=== PATIENT | male | born 1945 | race Caucasian/White ===

== ENCOUNTER 2021-01-08 21:18 | Inpatient (IN) | payer OTHER ==
[~2021-01-08] VITALS: Ht 162.6 cm; Wt 67.4 kg
[2021-01-08] MEDS ORDERED: TRAZODONE HCL150 MG PO (22:17)
[2021-01-08] MEDS ORDERED: GABAPENTIN300 MG PO (22:19)
[2021-01-08] MEDS ORDERED: MOBIC15 MG PO (22:19)
[2021-01-08] MEDS ORDERED: TRAZODONE HCL50 MG PO (22:20)
[2021-01-08] MEDS ORDERED: MULTI VITAMIN1 EACH PO (22:21)
[2021-01-08] MEDS ORDERED: DOCUSATE SODIU1 EACH PO (22:22)
[2021-01-08] MEDS ORDERED: FLOMAX0.4 MG PO (22:23)
[2021-01-08] MEDS ORDERED: METHADONE10 MG/5 ML PO (22:24)
--- NOTE | 2021-01-09 01:44 | NUR ---
REPORT RECEIVED FROM NATALIE SETH FROM ER. REPORTS THAT PT HAS DEMENTIA HAS CAREGIVER. PT HAD BM IN ER, IS INCONTINENT. HAS MIJARES IN PLACE. ON OXY MASK TO KEEP SATS IN THE 90'S. PT BROUGHT TO CCU BY NURSING UTILIZATION REVIEW RN WALTER. PATIENT WAS BEING TRANSFERRED TO BED AND HAD SMALL SOFT FORMED STOOL. PT CLEANED AND PLACE ON CCU BED.
--- NOTE | 2021-01-09 04:04 | NUR ---
INCREASED OXYMASK SETTING TO 7 LITERS TO MAINTAIN SATS IN THE 90'S. PT WILL FALL ASLEEP AND HIS SATS WILL DROP INTO THE HIH 80'S ON 5 LITER OXYMASK.
--- NOTE | 2021-01-09 05:11 | NUR ---
PT ASSESSMENT COMPLETE. WHEN THIS RN WENT INTO ROOM, PATIENT HAD HIS OXYMASK OFF HIS FACE, SATS DROPPED INTO MID 80'S. REINFORCED TO PATIENT THAT HE NEEDS OXYGEN AT THIS TIME AND THAT HE NEEDS TO KEEP O2 IN PLACE TO MAINTAIN HIS SATS. PT VERBALIZED UNDERSTANDING, BUT CONTNUES TO GRAB AT MASK, ALSO HAS BEEN FIGETING WITH SAT PROBE TO FINGER. KEPT OXYMASK AT 7 LITERS.
--- NOTE | 2021-01-09 05:43 | NUR ---
PT APPEARS TO BE FEELING A LITTLE AGITATED, PATIENT CONCERNED THAT HE WILL BE WITHOUT HIS "PILL" PATIENT ASKED IF HE IS REFERRING TO HIS METHADONE, SAYS "YES" AND HE HAS BEEN TAKING "IT FOR A LONG TIME, DON'T LIKE HOW IT FEELS WHEN WITHOUT IT" PT HAS PRN ORDER FOR OXYCODONE 5MG NEEDED FOR PAIN OR WITHDRAWL. SEE EMAR. PT MEDICATED. CONTINUING TO REINFORCE TO PATIENT TO KEEP OXYGEN ON. PT CAN BE HEARD HAVING NUMEROUS COUGHING EPISODES.
--- NOTE | 2021-01-09 07:30 | NUR ---
REPORT RECIEVED. PATIENT IS AWAKE WITH HOB ELEVATED. NO DISTRESS NOTED. IS ON OXYMASK AT 7 L.
--- NOTE | 2021-01-09 10:00 | NUR ---
RESTING. CONTINUES TO RAMBLE ON WITH WORDS, NOT SURE WHAT PATIENT IS TRYING TO SAY. IC CONFUSED.
--- NOTE | 2021-01-09 12:55 | NUR ---
restful in bed at this time. WAITING FOR LUNCH.
--- NOTE | 2021-01-09 13:08 | NUR ---
AGITATED, ATTEMPTIMG TO GET OOB. TRYING TO REASON WITH PATIENT. PATIENT NOW SITTING AT BED SIDE. RN IN ROOM FOR PATIENT SAFETY. NO RESP DISTRESS NOTED. MIJARES CATH PATENT. IVF ON HOLD AT THIS TIME PATIENT PULLING AT IV TUBING.
--- NOTE | 2021-01-09 13:30 | NUR ---
TOOK FEW BITES OF POTATOES. NO COUGH NOTED WHEN SWALLOWING.
--- NOTE | 2021-01-09 13:45 | NUR ---
SITTING AT BEDSIDE. STATES HE IS CONFUSED.
--- NOTE | 2021-01-09 13:50 | NUR ---
REFUSING TO TAKE PO MEDICATIONS. DR. CHEW UPDATEDE VIA PHONE REGARDING PATIENT AGITATION AND CONFUSION. ORDERS RECIEVED.
--- NOTE | 2021-01-09 14:15 | NUR ---
PULLED OFF LEADS, PULLING AT MIJARES CATH. IVF REMAIN HELD DUE TO PATIENTS FRUSTRATION. PATIENT WILL TALK AND ABLE TO UNDERSTAND WHAT HE IS SAYING BUT IS NOT MAKING SENSE MOST OF THE TIME. MORPHINE 2 MG IV GIVEN PER ORDERS.
--- NOTE | 2021-01-09 14:25 | NUR ---
MORE CALM AFTER MORPHINE.
--- NOTE | 2021-01-09 14:30 | NUR ---
TOOK PO MEDICATIONS. HAS PRODUCTIVE COUGHT OF THICK GREEN SPUTUM,
--- NOTE | 2021-01-09 14:49 | NUR ---
CONTINUES TO SIT AT BEDSIDE. NOT ON MONITOR,OXIMETER, OR IVF. GIVING PATIENT TIME TO RELAX. HAS BEEN PULLING AT IV SITES AT TIMES. RN IN ROOM.
--- NOTE | 2021-01-09 15:30 | NUR ---
IV SITES X 2 TO RIGHT HAND REDRESSED, BOTH SITES ARE PATENT.
--- NOTE | 2021-01-09 16:10 | NUR ---
IVF NOW INFUSING, STAFFING MANAGER ON, OXIMETER ON.
[2021-01-09] MEDS ORDERED: DOCUSATE SODIU1 EACH PO (16:37)
[2021-01-09] MEDS ORDERED: DISULFIRAM250 MG PO (16:41)
[2021-01-09] MEDS ORDERED: MUCUS RELIEF400 MG PO (16:47)
[2021-01-09] MEDS ORDERED: IMMUNICARE CAP1 EACH PO (16:48)
--- NOTE | 2021-01-09 16:50 | NUR ---
MED REC COMPLETE
--- NOTE | 2021-01-09 17:32 | EKG ---
[facility] [address] [facility] [place], [place] [address] Signed Normal sinus rhythm Nonspecific T wave abnormality Prolonged QT Abnormal ECG No previous ECGs available Confirmed by APOORVA CHEW DO ([id number]) on 01/09/2021 5:31:58 PM Electronically Signed By: APOORVA CHEW DO 01/09/21 1732 PATIENT NAME: MORGAN LEE Electrocardiogram DATE OF : 49 PHYSICIAN: APOORVA CHEW DO REPORT #: [id number] REPORT IS CONFIDENTIAL AND NOT TO BE RELEASED WITHOUT AUTHORIZATION
--- NOTE | 2021-01-09 18:06 | NUR ---
REFUSED DINNER. DENIES PAIN. HAS BEEM MORE CALM SINCE AROUND 1600 TODAY. CONTINUES WITH HARSH COUGH. NO FUTHER CHANGES.
--- NOTE | 2021-01-09 19:22 | NUR ---
NO FUTHER CHANGES. REPORT TO NEXT SHIFT.
--- NOTE | 2021-01-09 19:36 | NUR ---
RECEIVED REPORT FROM DAY SHIFT NURSES. BELKIS HAD DECENT MORNING BUT IN THE AFTERNOON WAS TRYING TO GET OUT OF BED PULL IV'S AND CORDS. MIJARES WAS REMOVED AT 1400 HAS NOT VOIDED YET HAS ATTENDS IN PLACE. PT WAS GIVEN MORPHINE TO RELAX HIM AND HE TOOK HIS USUAL PO MEDS. HAS 2 LO2 AT THIS TIME FOR ROOM AIR SAT 88%, PT HAD BEEN OF O2 FOR A GOOD PART OF DAY. NICOTINE PATCH IN PLACE. BED LARM ON.
--- NOTE | 2021-01-09 20:48 | NUR ---
PATIENT ASSESSMENT COMPLETE. WHEN THIS RN WENT INTO ROOM PATIENT WAS NOT WEARING HIS NASAL CANNULA SATS WOULD FLUCTUATE FROM 88% TO LOW 90'S, ENCOURAGED PATIENT TO KEEP IT ON. PATIENT HAS VOIDED A LARGE AMOUNT IN HIS ATTENDS. CLEANED PT AND APPLIED DRY ATTENDS. EDUCATED PT ON USING CALL LIGHT HE FELS NEED TO VOID TO ATTEMPT TO USE URINAL. PT GIVEN WATER TOD RINK WITH EVENING MEDS. DENIES PAIN. PATIENT CONTINUES TO PULL AT WIRES AND CORDS INSTRUCTED TO NOT TAKE THESE OFF.
--- NOTE | 2021-01-09 22:58 | NUR ---
PATIENT REMAINS AWAKE WATCHING TV, REINFORCED TO PATIENT TO TRY TO KEEP HIS NASAL CANNUAL IN HIS SATS WILL GO DOWN TO 88% AT TIMES. PT DENIES ANY NEEDS. DENIES PAIN AND NAUSEA. ATENDS ARE CLEAN AND DRY. PT SIPPING WATER.
--- NOTE | 2021-01-09 23:50 | NUR ---
PT CONTINUES TO GRAB AT CARDIAC LEADS AND MESS WITH HIS OXMETER ON FINGER WELL NASAL CANNUAL. REPLACED THE CARDIAC LEAD ELECTRODE PADS. REINFORCED TO PATIENT THE NEED FOR THESE TO SATY ON PATIENT VERBALIZED "OK" PT IS NOT COMBATIVE. PT HAS ALSO HAD ANOTHER WET ATTENDS.
--- NOTE | 2021-01-10 03:26 | NUR ---
PT ASLEEP ON BACK PATIENT WILL PULL NASAL CANNULA OFF SATS WILL MAINTAIN IN THE 90'S. HR IN THE 60'S, RR 20. VISUALIZED EVEN RISE AND FALL OF CHEST.
--- NOTE | 2021-01-10 04:43 | NUR ---
BETTINA RN WAS IN ROOM WITH PATIENT WHO WAS TRYING TO GET OUT OF BED AND BED ALARM WENT OFF YELLING "I HAVE TO PEE" HOWEVER PT SOILED HIS ATTENDS. PT APPEARS TO BE VERY AGITATED WANTS TO STAND AND WALK AROUND ROOM. PATIENT INFORMED HE HAS COVID AND IS IN THE HOSPITAL AND WEAK, IT IS NOT SAFE FOR HIM TO BE WALKING AROUND ROOM BY SELF. PT VERY AGITATED AND SPEWING PROFANITIES AT STAFF. REFUSING TO GET BACK IN BED. PT HAS COUGHING EPISODE WHILE SITTING ON BED AND SATS DROPPED, PT INSTRUCTED TO KEEP HIS O2 ON, HE KEEPS TAKING IT OFF. YAN FROM SECURITY IN ROOM DUE TO PATIENT ESCALATING
--- NOTE | 2021-01-10 04:59 | NUR ---
PT CONTINUES TO BE VERBALLY AGGRESSIVE AT STAFF REFUSING TO GET BACK ON THE BED. STATES "DON'T PUT YOUR FUCKING HANDS ON ME!" THIS RN AND YAN FROM SECURITY ENCOURAGING PT TO GET BACK ON THE BED FOR HIS SAFETY.
--- NOTE | 2021-01-10 05:03 | NUR ---
PATIENT SEVERELY AGITATED AND ABUSIVE TOWARD STAFF. SECURITY CALLED. ATTEMPTED TO REDIRECT PATIENT FAILED. PATIENT'S NEXT OF KIN CALLED WITH NO ANSWER. DISCUSSED WITH MD. RECEIVED ORDERS FOR PRN HALDOL. REVIEW ORDERS IN EMAR.
--- NOTE | 2021-01-10 05:13 | NUR ---
PT GIVEN 2MG HALDOL IV PER DR CHEW VERBAL ORDER FOR AGITATION, PATIENT HAS BEEN ASSISTED BACK TO BED BY YAN FROM SECURITY. PT CONTINUES TO SPEW PROFANITIES AND MAKE THREATS, BUT IS NOT TRYING TO PHYSICALLY HURT STAFF, PT APPEARS PARANOID.
--- NOTE | 2021-01-10 05:29 | NUR ---
PT INSISTED ON STANDING TO PEE GOT PFF BED DESPITE SATTF TELLING HIM HE NEES TO WAIT FOR ASSISTANCE, PT IS STILL AGITATED. HOLLY RN GAVE REST OF HALDOL IV 3MG FOR HIS AGITATION. AL STILL SPEAKING LOAUD AND AGITATED, CONFUSE NOT ANTING TO GET BACK IN BED PT DID VOID IN URINAL.
--- NOTE | 2021-01-10 06:47 | NUR ---
in room now that patient has relaxed after haldol. assessed patient's iv's due to his wreslting around iv's are no longer patent blood at sites. removed both iv's to right hand placed guaze and coban on sites. patient is uncooperative and shouting at this RN, attempted to do a straight stick but patient is more irrate and states "you guys aren't touching me" "i don't need that shit" unable to collect labs. patient does not have iv at this time.
--- NOTE | 2021-01-10 07:30 | NUR ---
report recieved. patient is resting in bed at this time. not awakened for assessment. no distress noted.
--- NOTE | 2021-01-10 09:15 | NUR ---
awake, BED ALARM GOING OFF. PATIENT STANDING AT BEDSIDE SAYING HE NEEDS TO PEE. INC OF URINE. WAS ABLE TO VOID SMALL AMOUNT OF URINE TO URINAL. NOT ABLE TO DIRECT PATIENT. PATIENT IS VERY UNSTEADY ON FEET. WAS FINALLY ABLE TO GET PATIENT BACK TO BED. I ATTEMPTED 3 TIMES TO START IV W/O SUCCESS. SUPERVISIOR HERE TO START IV AND DRAW LABS. THIS PROCESS TOOK APPROX 2.5 HOURS PATIENT WAS UP WALKING IN ROOM, WAS HOLDING ON TO BED, BEDSIDE STAND,TAMAYO, BATHROOM RAILS. WHEN ATTEMPTING TO HELP PATIENT, PATIENT WOULD YELL OUT "LEAVE ME ALONE,GET YOUR HANDS OFF OF ME" PATIENT IS VERY FRUSTRATED.
--- NOTE | 2021-01-10 09:37 | NUR ---
NO IV SITES UPON THIS ASSESSMENT. IV SITES WERE LOST PRIOR TO THIS SHIFT. WILL ATTEMPT ANOTHER IV SITE WHEN PATIENT MORE RELAXED. PATIENT IS VERY ANGERY AND AGITATED AT THIS TIME.
[2021-01-10] MEDS ORDERED: ENULOSE10 GM/15 M PO (10:50)
[2021-01-10] MEDS ORDERED: STOOL SOFTENER100 M1 PO (11:05)
--- NOTE | 2021-01-10 11:10 | NUR ---
HALDOL 5 MG IV GIVEN WHILE PATIENT STANDING UP IN BATHROOM. 2 RNS IN ROOM TO TRY AND DIRECT PATIENT.
[2021-01-10] MEDS ORDERED: VITAMIN D350 MC3 PO (11:18)
[2021-01-10] MEDS ORDERED: NARCAN4 MG NAS (11:18)
[2021-01-10] MEDS ORDERED: ARICEPT10 MG PO (11:29)
--- NOTE | 2021-01-10 11:40 | NUR ---
PATIENT NOW SITTING IN CHAIR. REMAINS DIFFICUTL TO CONTROL.
--- NOTE | 2021-01-10 12:00 | NUR ---
EKG COMPLETE. PATIENT IN BED. ASSESSMENT DONE. PLAN TO LET PATIENT SLEEP FOR NOW.
--- NOTE | 2021-01-10 13:11 | NUR ---
SLEEPING. NO DISTRESS AT THIS TIME.
--- NOTE | 2021-01-10 14:50 | NUR ---
BED ALARM GOING OFF. PATIENT STANDING AT BEDSIDE SAYING HE NEEDS TO PEE, INC OF SOME URINE, ALSO VOIDED TO URINAL. HAVING DIFFICULTY MANAGING HIMSELF. IS EXTREMELY FRUSTRATED, ANXIOUS, AGITATED. HALDOL 5 MG IV GIVEN.
--- NOTE | 2021-01-10 16:30 | NUR ---
assessment done as patient as patient awake and attempting to get oob. temp-100.6.
--- NOTE | 2021-01-10 17:30 | NUR ---
AWARE OF FEVER. ORDERS RECIEVED. IV TYLENOL ORDERED, IV ABX ORDERED.
--- NOTE | 2021-01-10 17:50 | NUR ---
INC OF URINE. SITTTING AT BEDSIDE. UABLE TO REASON WITH PATIENT. YELLS OUT, LEAVE ME ALONE, DON'T TOUCH ME! I DONT' WANT ANY HELP. THEN STOOD. VERY UNSTABLE ON FEET.
--- NOTE | 2021-01-10 18:48 | NUR ---
REMAINS VERY DIFFICULT TO CARE FR WILL NOT COOPERATIVE WITH TREATMENT. SITTING UP IN BED, YELLING OUT DON'T TOUCH ME. TUGGING AT IV TUBING. O2 OFF, OXIMETER OFF. I CAN NOT REAPPY AT THIS TIME PATIENT AGITATED.
--- NOTE | 2021-01-10 19:02 | NUR ---
DEXMEDETOMIDINE GTT AT 0.4 MCG/KG/HR
--- NOTE | 2021-01-10 19:30 | NUR ---
RECEIVED REPORT FROM [facility]. pt RESTING IN BED, QUIET MOVEMENTS AT THIS TIME. PRECEDEX GTT AT 0.6 HR 60 - 70S. SOME ECG LEADS OFF. IVF AND MAG INFUSING PER ORDERS. BED ALARM ON.
--- NOTE | 2021-01-10 20:04 | NUR ---
IN TO DO ASSESSMENT. pt SITTING UP IN BED. IMMEDIATELY STATED "GET OUT OF HERE" OFFERED MEDICATIONS pt AGREABLE TO TAKE. PICKED OUT THE ANTIBIOTIC AND HANDED IT BACK, LOUDLY REFUSED WHEN EDUCATION WAS DONE. pt PULLED ALL LEADS OFF. PRECEDEX TITRATED TO 0.8MCG/KG/HR. pt UNCOOPERATIVE WITH CARES. PUSHED THIS RN AWAY AND ASKED LOUDLY TO BE LEFT ALONE. ABLE TO REPLACE A FEW ECG ELECTRODES. HR 50'S. TITRATED PRECEDEX TO 0.7MCG/KG/HR TO MAINTAIN HR >50. pt CONTINUES TO MOVE QUIETLY IN BED. WAKES QUICKLY TO TOUCH AND ASKS TO BE LEFT ALONE. LIMITED ASSESSMENT DONE. IV IN RIGHT FOOT PATENT, BLOOD RETURN NOTED, FLUSHED WELL. RESPIRATIONS REGULAR, pt REFUSES O2 SAT AND OXYGEN. pt ABLE TO MOVE ALL EXTREMITIES INDEPENDENTLY. CURRENTLY RESTING IN BED FLAT SNORING AT TIMES. WAKES TO LIGHT NOISE IN ROOM AND ASKS TO BE LEFT PILO. HR IRREGULAR ON MONITOR. PRECEDEX TITRATED TO 0.6 MCG/KG/HR pt IS NOW SETTLED WITH NIGHTLY MEDICATIONS. BED ALARM ON.
--- NOTE | 2021-01-10 20:11 | EKG ---
[facility] [address] [facility] [place] [address] Signed Normal sinus rhythm Normal ECG When compared with ECG of 08-JAN-2021 21:24, Nonspecific T wave abnormality no longer evident in Inferior leads Nonspecific T wave abnormality no longer evident in Anterior leads Confirmed by APOORVA CHEW DO ([id number]) on 01/10/2021 8:10:42 PM Electronically Signed By: APOORVA CHEW DO 01/10/212010 PATIENT NAME: MORGAN LEE Electrocardiogram DATE OF : 49 PHYSICIAN: APOORVA CHEW DO REPORT #: [id number] REPORT IS CONFIDENTIAL AND NOT TO BE RELEASED WITHOUT AUTHORIZATION
--- NOTE | 2021-01-10 21:12 | NUR ---
IN TO ASSESS. pt RESTING FLAT IN BED. WOKE TO VOICE. ALLOWED THIS RN TO TAKE BP AND REPLACE LEADS. DID NOT ACTIVELY MOVE AWAY. DID NOT ALLOW ANY OTHER INTERVENTIONS, REQUESTED TO BE LEFT ALONE. pt DENIED PAIN AT THIS TIME. BED ALARM ON.
--- NOTE | 2021-01-10 21:33 | NUR ---
ROUNDED ON pt. RESTING IN BED MOSTLY QUIET. PRECEDEX GTT AT 0.3MCG/KG/HR. HR 45-52. BED ALARM ON.
--- NOTE | 2021-01-10 21:55 | NUR ---
ROUNDED ON pt. REMAINS RESTING IN BED. HAS RESPOSITIONED SELF. BED ALARM ON.
--- NOTE | 2021-01-10 22:10 | NUR ---
ROUNDED ON pt. CONTINUES TO HAVE A RASS OF -1 PRECEDEX GTT OFF AT THIS TIME. BED ALARM ON.
--- NOTE | 2021-01-11 | NUR ---
pt MOVING IN BED. THIS RN IN TO ASSIST. pt HAD TO URINATE. ASSISTED TO SIDE OF BED. pt WAS INCONT OF URINE. CHUX CHANGED. pt PUSHED WITH RN AWAY STATING "I DON'T NEED HELP I'M FINE" VERY UNSTEADY ON FEET. VOIDED INTO URINAL. pt BACK TO BED. REFUSED TO COOPERATE WITH CARES. REQUESTED STAFF LEAVE HIM ALONE. IVF INFUSING. RIGHT FOOT IV SL. BED ALARM ON.
--- NOTE | 2021-01-11 00:51 | NUR ---
ROUNDED ON pt. RESTING IN BED, RESPIRATIONS REGULAR AND UNLABORED. ALL MONITORS REMAIN OFF PER pt REQUEST. BED ALARM ON.
--- NOTE | 2021-01-11 01:26 | NUR ---
BED ALARM SET OFF. IN TO ASSIST PT WHO STOOD AT SIDE OF BED TO VOID AND THEN RETURNED TO BED. WARM BLANKET PROVIDED PER REQUEST. BED ALARM SET FOR SAFETY.
--- NOTE | 2021-01-11 05:11 | NUR ---
BED ALARMING. IN TO ASSIST. pt IMMEDIATELY SHOUTED "I'M FINE I DON'T NEED HELP" SL FOR pt SAFETY. pt WAS ABLE TO VOID IN URINAL WITHOUT ASSISTANCE. GOT HIMSELF BACK TO BED. ALLOWED THIS RN TO TAKE TEMPERATURE. TRIED A BLOOD PRESSURE BUT pt SHOUTED "IT HURTS STOP IT!" pt REFUSED TO BE ASSESSED. ALL MONITORS OFF AT THIS TIME. RESTING IN BED WITH BED ALARM ON.
--- NOTE | 2021-01-11 06:56 | NUR ---
BED ALARMING. pt UP TO URINATE WALKED TO BATHROOM UNSTEADY ON FEET. BACK TO BED. REPEATED "I'M FINE, I CAN DO IT." REFUSED ASSISTANCE. ABLE TO VOID TWICE. SOME INCONTINENCE. RESTING IN BED WITH BED ALARM ON.
--- NOTE | 2021-01-11 08:00 | NUR ---
REPORT RECEIVED FROM NIGHT RN AND PT. CARE RESUMED. BED ALARM SOUNDING. PT. IS STANDING. PT. TOLD THIS NURSE HE DOES NOT NEED HELP AND TO LEAVE. PT. ASSISTED WITH AMBULATING A SHORT DISTANCE AND THEN VOIDING 100ML IN CYLINDER. HE ALSO HAD AN INCONTINENT SMALL VOID AND CHUX CHANGED. PT. IS ORIENTED TO SELF ONLY. HE REFUSES PROCESS ENGINEERING INTERN, BP AND TEMP. 02 SAT IS 90% ON RA. IV SITES APPEAR WNL AND SL. LUNGS DIM. IN THE BASES. ALL MORNING MEDS TAKEN EXCEPT LOVENOX. PT. AGGITATED AT TIMES AND STATED "THAT'S ENOUGH BITCH". THIS NURSE TOLD THE PATIENT HIS LANGUAGE WAS NOT APPROPRIATE AND HE STATES "OK, SORRY". PT. LEFT RESTING WITH BED ALARM ON AND CURTAIN OPEN.
--- NOTE | 2021-01-11 09:10 | NUR ---
PT. BROUGHT BREAKFAST. HE ATE 25% WITH ASSISTANCE. PT. STATES HE DOES NOT NEED TO VOID AT THIS TIME. LEFT RESTING WITH ALARM ON.
--- NOTE | 2021-01-11 09:43 | NUR ---
PT. HAD AN INCONTINENT VOID IN BED AND ALSO VOIDED 50ML IN CYLINDER. PT. STATES HE HAS TO HAVE BM. THIS NURSE ASSISTED PT. TO THE BEDSIDE COMMODE, BUT HE WOULD NOT AMBULATE OR LET GO OF THE BEDRAIL AND DID NOT WANT TO BE TOUCHED. 2PA TO THE COMMODE. BEDDING CHANGED AND PT. ASSISTED WITH WASHING HANDS AND FACE. LEFT RESTING IN BED WITH ALARM ON AND CURTAIN OPEN.
--- NOTE | 2021-01-11 09:44 | NUR ---
THIS MAKEUP INSTRUCTOR IN ROOM TO ASSIST RN KRISTA. PATIENT UP TO BSC, UNABLE TO HAVE BM. BACK TO BED, WARM BLANKETS PROVIDED. BED ALARM ON FOR SAFETY. CALL LIGHT IN REACH
--- NOTE | 2021-01-11 11:05 | NUR ---
Analisa AND THIS NURSE ASSISTED PT. WITH EXERCISES. PT. VOIDED 100ML AND INCONTINENT VOID ON CHUX. PT. ABLE TO STAND SEVERAL TIMES WITH 2PA AND FWW. PT. REFUSING BP AND TEMP CHECKS, EATING DISORDER SPECIALIST. PT. ASSISTED WITH EATING SNACK. LEFT RESTING WITH BED ALARM ON AND CURTAIN OPEN.
--- NOTE | 2021-01-11 11:37 | NUR ---
PT. REQUESTED TO HAVE UNDERWEAR ON. ASSISTED WITH PLACING ATTENDS ON. PT. HELPED WITH REPOSITIONING AND BROUGHT BLANKETS. DENIES FURTHER NEEDS. PT. LEFT RESTING WITH ALARM ON AND CURTAIN OPEN.
--- NOTE | 2021-01-11 12:26 | NUR ---
PATIENT IS NOT ABLE TO HAVE A CONVERSATION VIA PHONE PER STAFF. CALLED AND SPOKE WITH AMY GASTELUM. WE DISCUSSED HER CONCERNS, QUESTIONS, AND WHAT IS IN PLAY WITH HIS CARE THROUGH THE [place]. PATIENT SEEMS CLOSE TO BASELINE WITH HIS MENTATION. SHE STATES SHE HAS BEEN WORKING WITH GREETING CARD MAKER AT [facility] FOR POSSIBLE HELP WITH CARE AT HOME. SHE STATES PATIENT HAS DEMENTIA, IS A ADDICT USING OPIODS AND ALCOHOL IN THE PAST. HE IS CURRENTLY ENROLLED AT [facility] AND [facility]. SHE STATES SHE DOES ALL HIS MEDICATIONS AND MONITORS HIM VERY CLOSELY WITH THEM. SHE STATES THEY MOVED HERE FROM [facility] AND SHE HAS BEEN TRYING TO GET HIM INTO THE [facility] IN [place] SO THEY DON'T HAVE TO TRAVEL TO [place]. SHE STATES SHE HAS HAD TROUBLE GETTING THROUGH WITH CLINIC HERE. SHE STATES SHE HAS BEEN WORKING TOWARDS GETTING HELP IN THE HOME. SHE IS WITH PATIENT 06/11. SHE STATES HE CANNOT BE LEFT ALONE AT ALL. SHE STATES HE HAS DEMENTIA, IS AN ADDICT, AND WAS INCARCERATED FOR YEARS. HE IS PTSD. HE SEES A NEUROLOGIST IN [facility] [place] [phone] AND HAD A NEURO ASSESSMENT AND SCAN A WEEK AGO. HE ALSO WORKS WITH PSYCHIATRIST DR DARLIN BEST [facility] [place] [phone]. HER INSTRUCTOR FLYING IS KERRY LOPEZ [id number]. PATIENT GOES THROUGH WANDY BRAUN AT [facility] [id number]. THE GREETING CARD MAKER SHE HAS BEEN WORKING WITH FROM [facility] IS AKBAR SAM[place] X [phone]. SHE STATES THEY DID A GEC RECENTLY. SHE STATES SHE CAN TAKE PATIENT HOME IF HE IS ABLE TO AMBULATE AND GET TO BATHROOM ETC. SHE IS VERY CONCERNED ABOUT DOSING OF [facility]. SHE HAS MANY QUESTIONS REGARDING THIS. I WAS ABLE TO ANSWER MOST BY CHART NOTES. SHE IS NOT SURE PATIENT HAS COVID. STATES THEY HAVE AVOIDED CONTACT WITH PEOPLE, USES MANY SANITIZERS AT HOME AND ALWAYS WEAR A MASK. SHE STATES THEY ONLY THING THEY HAVE DONE RECENTLY IS THE [facility], AND THEY WENT TO [facility] [place] LAST SUNDAY. SHE STATES THEY BOTH WORE A MASK THERE. SHE IS CONCERNED THE TEST IS WRONG. SHE HAS GONE TO GET TESTED, HAS NOT GOT RESULTS BACK YET. SHE STATES SHE WANTS PATIENT TO BE TESTED AGAIN, AND NOT A RAPID TEST. SHE ALSO STATES PATIENTS MEDICAL TEAM IN [place] IS THE STRENGTH TEAM. THIS INCLUDES PCP VI CHAVEZ AND RN JANKI. VENTED MANY FRUSTRATIONS AND CONCERNS. CONVERSATION WAS 1.5 HOURS. I DISCUSSED I WILL TR[facility] TO CONTACT [facility] TO SEE WHERE THEY ARE AT WITH [facility] [employer]. ALSO THAT OUR HOSPITALIST CHANGE TODAY AND DR BENITES WILL BE HERE AND TOMORROW WE WILL CALL HER TO UPDATE HER. SHE STATES SHE IS MUCH RELEAVED TO HAVE GOTTEN MY CALL AND SHE IS LOOKING FORWARD TO SPEAK WITH US AGAIN TOMORROW.
--- NOTE | 2021-01-11 12:35 | NUR ---
PT. WAS ATTEMPTING TO STAND. THIS NURSE ASSISTED PT. WITH STANDING. HE COULD NOT STATE WHERE HE WANTED TO GO AND WAS UNABLE TO TAKE STEPS. SAT AT THE EOB FOR SEVERAL MINUTES. 02 SAT WAS 92% ON RA. PT. ASSISTED WITH REPOSITIONING IN BED. LEFT RESTING WITH ALARM ON.
--- NOTE | 2021-01-11 13:00 | NUR ---
THIS RN RECEIVED REPORT FROM KRISTA SETH. THIS RN TO ASSUME CARE OF PT.
--- NOTE | 2021-01-11 13:53 | NUR ---
PT ATTEMPTING TO GET OUT OF BED. THIS NURSE IN THE ROOM TO ASSIST. PT. REFUSES HELP. WALKER GIVEN TO PT. HE HAS DIFFICULTY STANDING AND STATES HE NEEDS TO VOID SITTING AT EOB WITH STAFF IN THE ROOM. ON RA AND O2 SAT REMAINS GREATER THAN 90%.
--- NOTE | 2021-01-11 14:00 | NUR ---
THIS RN IN PTS ROOM TO SWITCH KRISTA RN. PT WANTING TO SIT ON EDGE OF BED. PT APPEARS ANXIOUS AND AGITATED. THIS RN ABLE TO GET PT BACK INTO BED AFTER FEEDING HIM A COUPLE BITES OF APPLESAUCE AND A FEW SIPS OF WATER- BEDSIDE SWALLOW EVAL- WHEN PT WAS LAID BACK INTO BED HE HAD A COUGHIN GFIT THAT REQUIRED HIM TO SIT BACK UP. EVENTUALLY PT APPEARED TIRED ENOUGH AND WAS ABLE TO LAY BACK DOWN WITH NO COUGHING FIT.
--- NOTE | 2021-01-11 14:30 | NUR ---
THIS RN BACK IN PTS ROOM WITH ANNA LARSEN DUE TO PT ATTEMPTING TO GET OUT OF BED. PT WAS INCONTINENT OF URINE AT THIS TIME. COMPLETE BED CHANGE DONE, PT TOELRATED OKAY- PT UNABLE TO VOID INTO CYLINDER BUT WAS ABLE TO STAND TWICE TO ALLOW BED CHANGE. PT BACK TO BED AND APPEARS TO BE MORE COMFORTABLE AT THIS TIME WITH WARM BLANKETS PLACED FOR COMFORT. PT NOT AGREEABLE TO PULSE OX AT THIS TIME.
--- NOTE | 2021-01-11 15:00 | NUR ---
this rn updated pts / caregiver. she was unhappy that pt had been placed on pain meds. this rn discussed with her that she could come in and sit with pt due to pt getting agitated when he has to pee, she stated she can come for a bit in the am
--- NOTE | 2021-01-11 15:15 | NUR ---
FRANCINE FROM SPEECH THERAPY IN ROOM TO EVALUATE PT DUE TO ASPIRATION RISK.
--- NOTE | 2021-01-11 15:40 | NUR ---
TRIED MULTIPLE TIMES TODAY TO GET THROUGH TO THE [facility]. HAD OUR CHW TRY ALSO AND SHE WAS NOT ABLE TO GET THROUGH. SHE CALLED [facility] AND THEY ARE CHECKING ON PHONE ISSUE.
--- NOTE | 2021-01-11 15:45 | NUR ---
PER FRANCINE FROM SPEECH THERAPIES ASSESSEMNT OF PT, THIS RN TO PLACE PT IN NPO STATUS DUE TO PT NOT BEING ALERT AT THIS TIME TO ASSESS PT. SOMEONE FROM [facility]ER[facility] WITH BE BY IN THE AM TO EVALUATE PT AGAIN.
--- NOTE | 2021-01-11 16:00 | NUR ---
THIS RN ORGINALLY IN PTS ROOM TO START PTS ANTIBIOTICS. PT THEN WOKE UP AND STATED THAT HE NEEDED TO PEE. THIS RN USED COLLINDER AND PT DRIBBLED 50ML INTO IT. PT THEN LAID BACK DOWN, THIS RN DID ASSESSMENT, PT THEN STATED THAT HE WANTED TO GET UP TO PEE. THIS RN ASSISTED PT TO EDGE OF BED, PT THEN REFUSED TO STAND UP TO PEE- PT SAT ON EDGE OF BED FOR 10MINS PRIOR TO LAYING BACK DOWN, PT APPEARED COLD. THIS RN TOOK PTS TEMP- 99.6 ORALLY. THIS RN ALSO TOOK PTS BP- PTS ARMS SHAKING DURING PROCESS- DIASTOLIC HIGH FOR EVERY BP TAKEN. PT APPEARED EXHAUSATED AND HENCE WHY PT DID NOT GET OUT OF BED. PT THEN STATED THAT HE NEEDED TO PEE AGAIN, THIS RN ASSISTED PT TO PEE USING COLLINDER WHILE IN BED, PT AGAIN PEED 50, PTS BLADDER FEELS FULL- MCKINLEY RN DISCUSSED WITH MELQUIADES FOR THIS RN TO STRAIGHT CATH PT THIS RN STRAIGHT CATHED PT- PT DID NOT TOLERATE WELL AND STERILE FEILD WAS BROKEN BY PT DUE TO NONCOMPLIANCE AND UNABLE TO UNDERSTAND- PT KEPT YELLING "YOU FUCKING BITCH" AND "I GOTTA PEE" THIS RN ABLE TO OBTAIN 250ML URINE OUT, PT EVENTUALLY ABLE TO SETTLE DOWN AFTER BLADDER EMTIED. THIS RN DID MEET RESISTANCE DURING STRAIGHT CATH PROCEDURE.
--- NOTE | 2021-01-11 18:56 | NUR ---
pt appears to be resting comfortably at this time with even respirations noted and noted rate at 17
--- NOTE | 2021-01-11 19:15 | NUR ---
PATIENT BED ALARM ACTIVATED. PT. TRYING TO LEAVE BED TO USE BATHROOM. PATIENT ASSISTED WITH BR ASSISTANCE. BRIEF CHANGED, ROOM TIDIED, BED ALARM ACTIVATED.
--- NOTE | 2021-01-11 19:25 | NUR ---
THIS RN IN PTS ROOM WITH BRIA LARSEN TO ASSIST PT WHO SET OFF THE BED ALARM TO PEE. PT WAS INCONTINENT OF URINE AT THIS TIME AND DEMANDED TO STAND UP TO PEE. PT WAS ONLY ABLE TO STAND FOR 2 MINS WITH NO PEE OUT PRIOR TO PT SITTING BACK DOWN IN BED. THIS RN AND BRIA REPOSITIONED PT IN BED. FLUIDS RESTARTED AT THIS TIME
--- NOTE | 2021-01-11 19:30 | NUR ---
RECEIVED REPORT FROM BISHNU SETH. pt WAS RECENTLY UP TO VOID AND BACK TO BED. FUSE CUP EXPANDER IN ROOM TO ASSIST. BED ALARM ON FOR SAFETY.
--- NOTE | 2021-01-11 20:57 | NUR ---
pt SET OFF BED ALARM AUT[employer]UB SAFETY PROGRAM COORDINATOR IN ROOM TO ASSIST. pt ABLE TO SIT ON THE SIDE OF THE BED, CONTINUES TO REPEAT "I'M OKAY, I DON'T NEED HELP" AFTER A TIME pt WAS ABLE TO SETTLE SELF BACK IN BED. LIMITED ASSESSMENT DONE. LUNGS CLEAR IN THE UPPERS, RIGHT LOWER DIM. BOWEL TONES ACTIVE. pt DOES HAVE A DEPEND IN PLACE. pt BECAME AGITATED WITH CARES, ANSWERED SOME QUESTIONS. REPORTED PAIN "ALL OVER" OFFERED NIGHTLY MEDICATIONS. pt ASKED THAT MEDS BE PLACED ON TABLE. pt RESTING IN BED WITH EYES CLOSED, RESPIRATIONS REGULAR. BED ALARM ON.
--- NOTE | 2021-01-11 21:10 | NUR ---
PATIENT BED ALARM ACTIVATED. PATIENT REFUSED TO LIE DOWN. PATIENT WANTED TO SIT ON SIDE OF THE BED. PATIENT WAS SUPERVISED FOR THE NEXT HOUR UNTIL NURSE CAME IN TO GIVE MEDS AND PATIENT LIED DOWN.
--- NOTE | 2021-01-11 22:04 | NUR ---
BED ALARMING. pt TRYING TO SIT UP. INCONT OF URINE WAS ABLE TO STAND A VOID SOME IN URINAL. SITTING ON EDGE OF BED. WAS ABLE TO TAKE MEDICATIONS AT THIS TIME. CHAVA FRASER IN ROOM WITH pt.
--- NOTE | 2021-01-11 22:55 | NUR ---
BED ALARMING. THIS RN IN TO ASSIST. pt SITTING ON SIDE OF BED. DENIES NEEDS. SLEEPING AT TIMES. BRIA LARSEN IN ROOM 1:1 WITH pt.
--- NOTE | 2021-01-12 00:24 | NUR ---
IN TO GIVE CASUALTY CLAIMS SUPERVISOR A BREAK. pt HAS BEEN SITTING ON EDGE OF BED. FALLING ASLEEP AT TIMES. pt REFUSES TO LAY IN BED OR SIT IN CHAIR. COMBATIVE AND AGITATED WITH TOUCH OR INSISTANCE OF REPOSITIONING. HAS BEEN ABLE TO SELF CORRECT WHEN DRIFTING FORWARD, REQUIRES 1:1 IN ROOM FOR SAFETY. REFUSING TO ANSWER QUESTIONS WITH MORE THAN "NO" CONTINUES TO STATE "I'M ALRIGHT". PROVIDED WARM BLANKETS. BED ALARM ON. DIRECT OBS WITH STAFF.
--- NOTE | 2021-01-12 00:31 | NUR ---
PATIENT BED ALARM ACTIVATED AGAIN. PATIENT HAS REFUSED TO LIE DOWN, PATIENT WAS SUPERVISED SITTING ON SIDE OF THE BED FROM 2255 UNTIL 0030. FALL MAT PROVIDED. ROOM TIDIED, PATIENT CONTINUES TO REFUSE TO LIE DOWN.
--- NOTE | 2021-01-12 00:45 | NUR ---
pt ATTEMPTING TO STAND. LOUDLY STATED "I NEED TO PEE!" TRIED TO ASSIST pt YELLED "STOP THAT!" INCONT OF URINE. THREE PERSON ASSIST TO CHAIR. pt AGITATED. SKIN CARE DONE. pt WRAPPED IN WARM BLANKETS. FRESH SOCKS. pt NON COMPLIANT WITH CARES. WHEN ASKED IF COMFORTABLE pt STATED "NO" BUT REFUSED TO TRANSFER TO BED. CURRENTLY SITTING IN CHAIR WITH ELBOWS ON LEGS, EYES CLOSED, RESPIRATIONS REGULAR. CHAIR ALARM ON. THIS RN DIRECT OBS.
--- NOTE | 2021-01-12 02:34 | NUR ---
STAFF CONTINUES TO BE 1:1 WITH pt. pt STATES "I'M ALRIGHT" NO REQUESTS. SITTING IN CHAIR. CONTINUES TO LEAN FORWARD. CHAIR ALARM ON.
--- NOTE | 2021-01-12 03:23 | NUR ---
pt SHIVERING. TEMPORAL TEMP 99.4, ATTEMPTED TO ADMINISTER TYLENOL. pt REPEATED "NOT RIGHT NOW, NOT RIGHT NOW" DENIES NEED TO URINATE OR DESIRE TO CHANGE POSITION. SITTING IN CHAIR ROCKING. CHAIR ALARM ON. STAFF DIRECT OBS.
--- NOTE | 2021-01-12 04:17 | NUR ---
pt ATTEMPTING TO GET UP. STATES LOUDLY "I HAVE TO PEE! RIGHT NOW!" ASSISTED WITH URINAL. pt INCONT WELL. pt REFUSES TO MOVE OR REPOSITION AT THIS TIME. WHEN pt SAW BLOOD PRESSURE CUFF HE FIRMLY STATED "NOPE" ALLOWED O2 SAT AND PULSE TO BE TAKEN. REPORTED PAIN, PRN TYLENOL GIVEN, TEMPORAL TEMPERATURE 99.4. pt BECAME MORE AGITATED WHEN STAFF TRIED TO CLEAN UP INCONT VOID. pt IS UNCOOPERATIVE WITH CARES. STAFF REMAINS DIRECT OBS WITH pt. CHAIR ALARM ON.
--- NOTE | 2021-01-12 05:42 | NUR ---
pt ATTEMPTING TO GET UP. IN TO ASSIST. pt UNSTEADY AND WEAK BUT ABLE TO GET TO BED 1PA. BOOSTED IN BED. WARM BLANKETS APPLIED. BED ALARM ON. pt REFUSED TO COOPERATE WITH ASSESSMENT. CURTAIN OPEN TO NURSES STATION.
--- NOTE | 2021-01-12 06:14 | NUR ---
ROUNDED ON pt. RESTING IN BED WITH BED ALARM ON. EYES CLOSED, RESPIRATIONS REGULAR.
--- NOTE | 2021-01-12 07:41 | NUR ---
REPORT RECIEVED. PATIENT IS ASLEEP AT THIS TIME. NO DISTRESS NOTED.
--- NOTE | 2021-01-12 08:30 | NUR ---
MODIFIED ASSESSMENT DONE. REFUSING BP, OXIMETER READING-88. WILL NOT KEEP O2 ON. IS MORE CALM AT THIS TIME. REMAINS NPO. NO RESP DISTRESS NOTED.
--- NOTE | 2021-01-12 08:55 | NUR ---
BED ALARM SOUNDING, PATIENT ATTEPTING TO GET UP. THIS CONCRETE PAVING MACHINE OPERATOR IN ROOM. PATIENT INCONTINENT OF URINE AND REQUESTS TO STAND AND USE URINAL, UNABLE TO VOID. BACK TO BED. BED ALARM ON FOR SAFETY. BRACHIAL PULSE AND RESP. RATE CHARTED. RN AWARE.
--- NOTE | 2021-01-12 10:22 | NUR ---
IVF OF LR RESTARTED AT 50 ML/HR IN HOPS THAT PATIENT IS ABLE TO TOLERATED FLUIDS INFUSING TO R INNER ANKLE SITE. PATIENT REMAINS NPO.
--- NOTE | 2021-01-12 11:00 | NUR ---
WAS ABLE TO GET THROUGH TO [facility] TODAY. THEY STATED THEIR WHOLE PHONE SYSTEM WAS DOWN YESTERDAY. SPOKE WITH JAIRON JOHNSON ASSISTANT BRANCH OPERATIONS MANAGER WHO THEY TRANSFERRED ME TO BECAUSE [facility] WAS NOT AVAILABLE. SHE STATES THAT [place] [facility] [place] AND HE WAS ASSIGNED A CASE MANAGEMENT TEAM. STATES THEY HAD REQUESTED RESPITE CARE SO THAT CAN TAKE A BREAK ON OCCASION. DISCUSSED WITH HER THAT PATIENT MAY NEED MORE CARE THAN THAT AND SHE STATES JUST NEEDS TO CALL ED [facility] AND HE CAN HELP HER GET THINGS ARRANGED.
--- NOTE | 2021-01-12 12:00 | NUR ---
SLEEPING, MUCH LESS AGITATED TODAY. WILL OPEN EYES BRIEFLY THEN SHUT THEM AGAIN. REMAINS OFF SKIVING MACHINE OPERATOR. LR AT 50 ML HR INFUSING.
--- NOTE | 2021-01-12 12:45 | NUR ---
SPOKE WITH DR BENITES AFTER SHE HAS SEEN PATIENT AND REVIEW CHART. PATIENT IS CONTINUING TO ASPIRATE PER AMA AYALA. PATIENT MAY POSSIBLY NEED MORE WORK-UP AND RESOURCES TH[facility]OUGH [facility] TRANSFER TO ONE OF THEIR FACILITIES. I CALLED [facility] [phone] AND SPOKE WITH MAXIME. DISCUSSED DR BENITES WOULD LIKE TO TALK WITH SOMEONE ABOUT POSSIBLE TRANSFER. INFORMATION GIVEN AND DR BENITES'S PHONE GIVEN FOR THEM TO REACH.
--- NOTE | 2021-01-12 13:30 | NUR ---
/CAREGIVER HERE AND NOW IN ROOM. PATIENT IS ASLEEP.
--- NOTE | 2021-01-12 14:00 | NUR ---
/CAREGIVER TALKING WITH DR. BENITES AND SIMONE SHIN RN REGARDING POC.
--- NOTE | 2021-01-12 14:30 | NUR ---
PHYS THERAPY HERE TO WORK WITH PATIENT. PATIENT SAT AT BEDSIDE THEN TRANSFERRED TO CHAIR WITH ASSIST OF 2 STAFF. SEE PHYS THERAPY NOTE.
--- NOTE | 2021-01-12 14:43 | NUR ---
CALLED PATIENTS AMY AND SHE WAS HERE IN HIS ROOM. ASKED IF SHE WOULD LIKE TO VISIT WITH MYSELF AND DR BENITES TO UPDATE HER AND GET HER INPUT ON A PLAN OF CARE. WE MET WITH HER IN THE ICU IN THE HALLWAY. DR BENITES UPDATED HER AND SHE WOULD LIKE TO PURSUE TRANSFER TO THE [facility] PERFERABLY. SHE STATES THAT AFTER BEING IN THE ROOM WITH HIM, SHE DOES NOT THINK SHE CAN TAKE HIM HOME AT THIS TIME ANYWAY AND HE MAY NEED TO GO TO ONE OF THE PR COVERED REHABS AFTER HIS ACUTE CARE. AFTER DR BENITES LEFT FOR A MEETING I SPOKE WITH HER ANOTHER 30 MINUTES. IN THIS TIME SHE SAID THAT PATIENT HAS HAD FOUR DIRTY UA'S FOR HIS [employer] PROGRAM. SHE WOULD LIKE TO DISCUSS THIS WITH THEM WHEN HE IS IN [place]. SHE STATES FRUSTRATION THAT SHE HAS NOT BEEN ABLE TO GET HIM INTO A LOCAL CLINIC. SHE STATES THEY MIGHT HUMAN RESOURCES PROJECT MANAGER TO [employer] SO THEY CAN GO TO [facility] FOR THAT. DISCUSSED THAT AT THIS TIME WE WON'T BE CHANGING ANY OF THAT. IT WOULD MOST LIKELY BE DONE AFTER ACUTE STAY. SHE IS FINE WITH THIS. SHE ALSO STILL DOES NOT THINK PATIENT HAS COVID. SHE STATES IF SHE IS NEGATIVE THEN HOW CAN HE BE POSITIVE. DISCUSSED THAT PEOPLE IN SAME HOME CAN TEST DIFFERENTLY. NOT EVERYONE TURNS POSITIVE AT SAME TIME. SHE STILL INSISTS THAT SHE IS VERY CAREFUL WITH MASKING AND CLEANING. REMINDED HER SHE SAID THEY WENT TO LOCAL [facility] 12/30 AND IT JUST TAKES ONE EXPOSURE TO CONTRACT THIS VIRUS. REMINDED HER AT THIS TIME HE DOESN'T SEEM TO HAVE MANY OF THE SYMPTOMS, SO TIME WILL TELL HOW HE DOES REGARDING THIS. BUT THAT WE HAVE TO KEEP HIM IN QUARANTINE HERE AT THE FACILITY. PHYSICAL THERAPIST ARRIVED AND WAS GOING INTO WORK WITH PATIENT. I SUGGESTED IF SHE WAS IN WITH THEM PATIENT MIGHT BE MORE COOPERATIVE. SHE AGREED AND LEFT TO GO BACK INTO THE ROOM.
--- NOTE | 2021-01-12 15:10 | NUR ---
ASSESSMENT DONE. IS MUCH MORE COOPERATIVE AT THIS TIME. BACK TO BED WITH ASSIST.
--- NOTE | 2021-01-12 18:37 | NUR ---
WARM BLANKET PROVIDED. PATIENT RESTING WITH EYES CLOSED
--- NOTE | 2021-01-12 19:30 | NUR ---
REPORT RECEIVED FROM MCKINLEY SETH. PT IN BED, WATCHING TV, DENIES NEEDS, BED ALARM ON.
--- NOTE | 2021-01-12 19:45 | NUR ---
PT ATTEMPTING TO GET OUT OF BED, ASKED HIM IF HE NEEDED TO USE BR, HE FIRST STATED YES THEN STATED NO HE WANTED TO GO TO BED. ASSISTED BACK TO BED, BED ALARM ON.
--- NOTE | 2021-01-12 20:20 | NUR ---
PT AWOKE EASILY FOR ASSESSMENT AND HS MEDS. LUNGS HAVE CRACKLES IN RIGHT BASE, OCCASIONAL COUGH. BPS ELEVATED, WILL CONT TO MONITOR.
--- NOTE | 2021-01-12 21:00 | NUR ---
BPS CONT TO BE HIGH, DR BENITES NOTIFIED. WILL CONT TO MONITOR FOR NOW.
--- NOTE | 2021-01-12 23:00 | NUR ---
IN TO CHECK ON PT, STATES HE IS COLD, PULLED HIS BLANKETS UP. PRODUCTIVE SOUNDING COUGH NOTED, CRACKLES REMAIN IN LUNG BASES. BED ALARM ON.
--- NOTE | 2021-01-13 02:17 | NUR ---
IN TO HANG NEW IVF, PT CONT TO SLEEP.
--- NOTE | 2021-01-13 03:07 | NUR ---
IN TO CHECK ON PT, TEMP RECHECKED IS 98.2 AX. PT STATES HE NEED TO VOID, HELPED HIM TO SIT UP AT EDGE OF BED, STATES HE FEELS TOO WEAK TO STAND. PT SAT ON EDGE OF BED APPROX 5 MINUTES ATTEMPTING TO VOID INTO CYLINDER BUT WAS UNABLE, ASSISTED BACK TO BED. DID HAVE SMALL INC URINE ON PADS. FRESH PAD PLACED AND PT REPOSITIONED UP IN BED AND WANTING TO GO BACK TO SLEEP. BED ALARM ON.
--- NOTE | 2021-01-13 04:38 | NUR ---
IN TO CHECK ON PT, AWAKE AT THIS TIME AND ASKING FOR ASSISTANCE TO SIT UP. ASKED IF PT NEEDED TO URINATE, BUT HE SAID NO. ATTENDS APPEAR DRY AT THIS TIME. PT REPORTS SOB AND WANTS TO SIT AT SIDE OF BED, BED ALARM SET AND FLOOR PAD PLACED IN FRONT OF PT FOR SAFETY. SPO2 88-90% ON RA, PT DECLINES OXYGEN SUPPLEMENTATION. HR REGULAR. BOWEL TONES ACTIVE. SKIN APPEARS GROSSLY INTACT. IV APPEARS INTACT, FLUIDS INFUSING WNL. PT DENIES PAIN AND IS ORIENTED TO SELF AND YEAR, IS CURRENTLY CALM/COOPERATIVE. WARM BLANKETS PROVIDED PER REQUEST, NO FURTHER REQUESTS AT THIS TIME.
--- NOTE | 2021-01-13 05:30 | NUR ---
PT AGREEABLE TO LAYING BACK DOWN IN BED SO THAT LICENSED LOAN OFFICER ASSISTANT COULD DRAW BLOOD FOR MORNING LABS, PT TOLERATED WELL. OFFERED TO ASSIST PT BACK TO SITTING AT SIDE OF BED, BUT HE DECLINED STATING THAT HE WAS COMFORTABLE. ATTENDS REMAIN DRY. IV IS PATENT AND INFUSING WNL. BED ALARM SET FOR SAFETY.
--- NOTE | 2021-01-13 06:29 | NUR ---
BED ALARM SET OFF, PT TRYING TO GET UP TO VOID. PT ASSISTED TO USE URINAL, VOIDED 100ML AND HAD ALSO BEEN INCONTINENT OF LARGE AMOUNT OF URINE. NEW ATTENDS AND CHUX PROVIDED. PT REQUESTS TO REMAIN SITTING AT SIDE OF BED. BED ALARM SET AND FLOOR MAT REMAINS IN FRONT OF PT.
--- NOTE | 2021-01-13 06:35 | NUR ---
DR. BENITES NOTIFIED OF PT'S POTASSIUM LEVEL ON LABS OF 2.8. ORDERS RECEIVED FOR 40 MEQ IVPB POTASSIUM REPLACEMENT.
--- NOTE | 2021-01-13 08:02 | NUR ---
PT SITTING UP AT THE SIDE OF THE BED. OFFERED PT COFFEE, HE NODS HIS HEAD YES TO THAT. COFFEE MADE AND TAKEN IN TO PT ROOM.
--- NOTE | 2021-01-13 08:12 | NUR ---
PT REFUSES TO WEAR ANY MONITORING CABLES AT THIS TIME.
--- NOTE | 2021-01-13 08:26 | NUR ---
PATIENT SITTING QUIETLY ON SIDE OF BED DRINKING COFFEE, FALL MATS ON FLOOR NEXT TO BED FOR SAFETY. WARM BLANKETS AND FRESH ICE WATER PROVIDED. VITALS CHARTED. PATIENT REFUSED BP. PATIENT DENIES NEED TO URINATE AT THIS TIME. BED ALARM ON FOR KRISTINEY, CALL LIGHT IN REACH.
--- NOTE | 2021-01-13 09:12 | NUR ---
PT REFUSING TO WORK WITH OCCUPATIONAL THERAPY AND MINIMALLY WITH SPEECH THERAPY. PT REFUSES ENOXIPRIN. PT WILLING TO TAKE PILLS WITH SIPS OF COFFEE. PT STATS "I NEED TO PEE" GIVEN A URINAL AND WALKER TO ASSIST WITH STANDING, THEN PT REFUSES TO STAND AND SAYS "I DON'T HAVE TO PEE". PT REFUSES TO MOVE FROM A SITTING POSITION ON THE SIDE OF THE BED. IV SITE IS INTACT, FLUIDS INFUSE EASILY, PT DENIES PAIN AT THE SITE. PT DENIES PAIN IN GENERAL.
--- NOTE | 2021-01-13 11:22 | NUR ---
PT REMAINS SITTING UP AT THE SIDE OF THE BED, HE REFUSES TO LAY DOWN. PT SAYS "ARE YOU TIRED?"
--- NOTE | 2021-01-13 12:34 | NUR ---
PT ABLE TO STAND AT THE BEDSIDE WITH WALKER AND TWO PERSON ASSIST FOR ABOUT 20 SECONDS AT A TIME. PT REFUSES BATH EXCEPT TO WASH HANDS WITH WASH CLOTH. ALL LINENS CHANGED ON THE BED, PT IN CLEAN ATTENDS. PT IS AGREABLE TO BEING ASSISTED TO LAY BACK IN BED.
--- NOTE | 2021-01-13 15:20 | NUR ---
PT SITTING UP HIGH IN THE BED, REQUESTS AND IS GIVEN FOOD. PT ABLE TO FEED SELF TWO BITES OF FOOD AND THEN TAKES A BREAK, FOOD IS MINCED AND MOIST. PT THEN COUGHS A BIT AND TAKES A FEW MORE BREAKS. PT ALSO ABLE TO JEROME SOME SIPS OF SODA. PT ATE APPROXIMATLY 50% OF MEAL.
--- NOTE | 2021-01-13 16:41 | NUR ---
REPORT RECEIVED FROM DORINDA SANTACRUZ. AWAITING PTS ARRIVAL TO MED/SURG.
--- NOTE | 2021-01-13 16:50 | NUR ---
FULL REPORT GIVEN VIA PHONE TO RAMIREZ SETH, ALL QUESTIONS ANSWERED.
--- NOTE | 2021-01-13 17:00 | NUR ---
PT MOVED TO ROOM 121 ON MED/SURG FLOOR VIA BED, ALL PERSONAL BELONGINGS WENT WITH PT. PT JEROME MOVE WELL. RAMIREZ SETH IN ROOM 121, ASSISTED W/ SETTLING THE PT. CHART AND ALL KITS MEDS TAKEN TO MED/SURG.
--- NOTE | 2021-01-13 17:00 | NUR ---
CCU SHIFT SUMMRY NOTE PT MOSTLY NON-COMPLIANT WITH INTERVENTIONS THIS SHIFT. PT REFUSES TO HAVE B/P TAKEN, HAVE CARDIAC LEADS ON, AND SPO2 MONITOR. PT NOT WILLING TO WORK MUCH WITH PHYSICAL THERAPY, OCCUPATIONAL THERAPY, OR SPEECH THERAPY. PT NOT ABLE TO STAND AT THE BEDSIDE FOR MORE THAT 15-20 SECONDS, TWO PERSON ASSIST TO STAND UP, AND WALKER USED FOR BALANCE. PT REFUSES BATH, ONLY WILLING TO WASH HIS HANDS. ALL LINENS CHANGED ON HIS BED. PT IS WILLING TO TAKE PO PILLS AND IV MEDICATIONS. PT SITS UP ON THE EDGE OF THE BED UNTIL ABOUT 1230, AND THEN IS WILLING TO LET STAFF ASSIST HIM TO LAY IN BED. PT NOT ABLE TO USE CALL LIGHT APPROPRIATLY.
--- NOTE | 2021-01-13 17:08 | NUR ---
PT ARRIVED FROM CCU BY BED. PT REQUESTS URINAL TO USE. PT ASSISTED WITH URINAL. BLOOD PRESSURE ELEVATED, DR. CALDERON UPDATED. IV ASSESSED, WNL, NO S/S OF PHLEIBITS NOTED. PT DENIES PAIN AND NAUSEA AT THIS TIME. PT COMPLIANT WITH CARES AND FOLLOWING DIRECTIONS AT THIS TIME. PT ORIENTED INCONSISTANTLY, ABLE TO STATE MONTH AND YEAR AND THAT HE IS AT THE HOSPITAL, DOES NOT KNOW WHAT TOWN HE IS IN OR WHY HE IS AT THE HOSPITAL. PT FOLLOW DIRECTIONS INCONSISTANTLY. PT TALKS ABOUT HIS PENIS INNAPROPRATLY FOR SITUATION. PT ORIENTED TO SELF. PT ABLE TO LIFT LEGS OFF THE BED, GENERALIZED WEAKNESS CONTINUES. BED ALARM ON. LUNG SOUNDS CLEAR IN UPPER LOBES, DEMINISHED IN BASES. RESPIRATIONS UNLABORD, PRODUCTIVE COUGH CONTINUES WITH THICK BROWN SPUTUM. UPDATEDON PTS PRIOR PO INTAKE, ORDERS TO KEEP PT NPO, PT REMAINS NPO AT THIS TIME. REDNESS NOTED AT MEATUS OF PENIS. WARM BLANKETS PROVIDED. PT WATCHING TV. CALM AT THIS TIME. BED ALARM ON. CALL LIGHT WITHIN REACH.
--- NOTE | 2021-01-13 17:10 | NUR ---
MULTIPLE ATTEMPTS TODAY TO [facility]. PHONE SYSTEMS OUTAGE IN AREA. NOTHING HEARD FROM [facility] IN REGARDS TO POSSIBLE MOVE TO [facility].
--- NOTE | 2021-01-13 18:25 | NUR ---
THIS RN TO ROOM TO CHECK ON PT. PT SOILED AND BED SATURATED WITH URINE. LINENS CHANGED, ANTOINE CARE DONE, DEPENDS CHANGED. PT REPOSITIONED TO RIGHT SIDE. SUPPORETD WITH PILLOWS. WARM BLANKETS PROVIDED. PT AGITATED WITH CARES. COUGH INCREASES WHEN HEAD OF BED IS LOWERED. HEAD OF BED REMAINS AT 24 DEGREES, PT BECOMES VERY AGITATED WHEN HEAD OF BED IS ABOVE THIS ANGLE. PT DNEIES ADDITIONAL REQUESTS OR COMPLAINTS. BED RAILS UP. CALL LIGHT WITHIN REACH. BED ALARM ON.
--- NOTE | 2021-01-13 19:50 | NUR ---
bed alarm set off, pt needs to void, tried to stand pt at bedside, pt unable to use urinal, sat pt at edge of bed, pt c/o pain from the cold air, warm blanket provided, pt able to void, 75mls, vitals done, pt wants to sit up at the edge of the bed, rn in for meds, pt still sitting up, bed alarm on, in view from rn station
--- NOTE | 2021-01-13 19:55 | NUR ---
RECEIVED REPORT FROM DAY SHIFT RN. PATIENT IS RESTING IN BED. BED ALARM ON FOR SAFETY.
--- NOTE | 2021-01-13 20:40 | NUR ---
PATIENT ASSESMENT COMPLETED. PATIENTS VITALS TAKEN AND RECORDED. PATIENT WAS ABLE TO TAKE MEDICATIONS WITH CHOCOLATE PUDDING. PATIENT DID TRY AND SPIT MEDICATIONS OUT. PATIENTS INTAKE AND OUPUT RECORDED. PATIENT IS SITTING ON THE EDGE OF THE BED. BED ALARM IS ON FOR SAFETY. NO FURTHER NEEDS NOTED. NO S/S OF ASPIRATION NOTED. CALL LIGHT IN REACH.
--- NOTE | 2021-01-14 00:23 | NUR ---
PATIENT IS RESTING IN BED WITH EYES CLOSED, RR 16. CALL LIGHT IN REACH. BED ALARM ON FOR SAFETY. CALL LIGHT IN REACH.
--- NOTE | 2021-01-14 03:04 | NUR ---
PATIENT IS RESTING IN BED WITH EYES CLSOED, RR 18. CALL LIGHT IN REACH. BED ALARM ON FOR SAFETY.
--- NOTE | 2021-01-14 05:18 | NUR ---
PATIENT ASSESMENT COMPLETED. PATIENT ASSISTED TO STAND AT THE BEDSIDE. PATIENTS BEDDING CHANGE. PATIENTS GOWN CHANGED AND ATTEND PUT IN PLACE. PATIENT IS BACK IN BED RESTING. PATIENTS BED ALARM ON FOR SAFETY. CALL LIGHT IN REACH.
--- NOTE | 2021-01-14 07:08 | NUR ---
REPORT RECEIVED FROM DORINDA ROBINS. PT RESTING IN BED ON BACK WITH EYES CLOSED. HEAD OF BED ELEVATED TO 15 DEGREES. BED RAILS UP. CALL LIGHT WITHIN REACH. PT ALLOWED TO REST. PT EASILY VIEWED FROM NURSES STATION, BED ALARM ON.
--- NOTE | 2021-01-14 09:50 | NUR ---
MORNING ASSESSMENT AND MEDICATION DUE. PT RESTING IN BED WITH EYES CLOSED, RESPIARTIONS EVEN AND UNLABORED. HEAD OF BED ELEVATED TO 29 DEGREES. PT AWAKENS TO VOICE AND LIGHT TOUCH. PT CONFIRMS THAT HE IS HAVING PAIN BUT IS UNABLE TO RATE PAIN. FLACC SCORE OF 4/10. SCHEDULED MEDICATIONS GIVEN. PHARMACIST, DARSHANA, CALLED AND STATES MORNING MEDICATIONS CAN BE CRUSHED. PT TAKES MEDICATIONS CRUSHED IN PUDDING. IV ASSESSED, WNL, NO S/S PHLEBITIS NOTED. PT ORIENTED TO SELF AND KNOWS HE IS IN THE HOSPITAL. PT ALSO KNOWS YEAR. PT DISORINTED TO DATE/MONTH, EVENTS, REASON HE IS IN THE HOSPITAL, AND TOWN STATING HE IS IN "[place]." OCCATIONAL PRODUCTIVE COUGH NOTED, RABAGO SPUTUM. LUNG SOUNDS CLEAR. PT ASSISTED WITH URINAL USE. PEES IN BED WELL, UNAWARE OF WHERE URINAL IS OR WHEN TO BEGIN VOIDING. BLOOD PRESSURE REMAINS ELEVATED. CLONIDINE PATCH IN PLACE. MD AWARE. PT REPOSITIONED IN BED. HEAD OF BED ELEVATED TO 30 DEGREES. PT WATCHING TV. BED RAILS UP. CALL LIGHT WITHIN REACH. BED ALARM ON. IN UPPER LOBES AND DEMISHED IN BASES.
--- NOTE | 2021-01-14 10:12 | NUR ---
Patient chose to sit in bed instead of get up to the chair. Ailyn care was done with a ELECTRICAL TIMING DEVICE CALIBRATOR and an RN. Vitals and I&Os are complete. Patient is incontinent at times. Patient uses urnal.
--- NOTE | 2021-01-14 11:17 | NUR ---
THIS RN TO ROOM TO CHECK ON PT. PT RESTING IN BED WITH EYES CLOSED, RESPIRATIONS EVEN AND UNALBORED. BED RAILS UP. CALL LIGHT WITHIN REACH. BED ALARM ON. PT ALLOWED TO REST.
--- NOTE | 2021-01-14 12:13 | NUR ---
THIS RN TO ROOM TO CHECK ON PT. PT REPOSITIONED TO RIGHT SIDE, SUPPORTED WITH PILLOWS. PT RESTING WITH EYES CLOSED, RESPIRATIONS EVEN AND UNALBORED. BED RAILS UP. BED ALARM ON. CALL LIGHT WITHIN REACH.
[2021-01-14] MEDS ORDERED: METHADONE HCL10 MG PO (13:54)
[2021-01-14] MEDS ORDERED: GABAPENTIN100 MG PO (13:55)
[2021-01-14] MEDS ORDERED: RISPERIDONE0.25 MG PO (13:55)
--- NOTE | 2021-01-14 13:58 | NUR ---
Patient is asking about when he'll be done with NPO. Vitals, I&O are done.
--- NOTE | 2021-01-14 15:06 | NUR ---
AFTERNOON ASSESSMENT AND MEDICATION DUE. PT RESTING IN BED ON RIGHT SIDE WITH EYES CLOSED. RESPIRATIONS EVEN AND UNALBORED. PT AWAKENS TO LIGHT TOUCH. PT DENIES PAIN AND NAUSEA. PT CONTINUES TO BE ORIENTED ONLY TO SELF, HOSPITAL, AND YEAR. PT CONTINUES TO STATE HE IS IN "[place]." PT COMPLIANT WITH CARES, CALM AND COOPERATIVE BUT FOR GETFUL AT TIMES. SPEECH CONTINUES TO BE GARBLED. PT ENCOURAGED TO GET UP TO CHAIR. PT DECLINES STATING HE WANTS TO STAY IN BED. PT SOILED WITH URINE. ANTOINE CARE DONE, DEPENDS CHANGED. LUNG SOUNDS CLEAR ALTHOUGH DEMINSHED IN BASES. OCCATIONAL COUGH CONTINUES. PT REPORTING HUNGER, NPO EDUCATION DONE WITH AND PT IS ABLE TO REPEAT BACK REASON FOR NPO STATUS. MEDICATIONS GIVEN WITH APPLESAUCE AND PT DENIES ADDITIONAL BITES OF APPLESAUCE. PT ASSISTED WITH USING URAINAL, VOIDS 100ML CLEAR DARK YELLOW URINE. IV ABX STARTED. PT RESTING IN BED WATCHING TV. BED RAILS UP. CALL LIGHT WITHIN REACH.
--- NOTE | 2021-01-14 15:44 | NUR ---
PUMP ALARMING, INFUSION AND FLUSH COMPLETE. IV ASSESSED, WNL, NO S/S PHLEBITIS NOTED. IV FLUIDS RESTARTED. PT RESTING IN SEMIFOWLER POSITION WITH HEAD OF BED ELEVATED TO 30 DEGREES WITH EYES CLOSED. RESPIRATIONS EVEN AND UNALBORED. NO ADDITIONAL REQUESTS OR COMPLAINTS. CALL LIGHT WITHIN REACH. BED RAILS UP. BED ALARM ON.
--- NOTE | 2021-01-14 15:48 | NUR ---
Multiple calls have now been made between our facility, [facility], and [facility]. Dr. Titus Heard has agreed to take Philippe at the [facility]. Lucia has been made aware of the arrangements that have been made. The [place] administration has arranged for transport through [facility], anticipate transport at apprimately 5:30 this evening.
--- NOTE | 2021-01-14 16:09 | NUR ---
[facility] CALLED TO GIVE REPORT ON PT PIROR TO TRANSFER. PTS ACCEPTING RN OCCUPIED AND WILL CALL BACK.
--- NOTE | 2021-01-14 16:56 | NUR ---
Patient discharge vitals, I&Os are done.
--- NOTE | 2021-01-14 17:35 | NUR ---
PT READY FOR TRANSFER TO [facility]. PT UPDATED ON PLAN OF CARE AND IS ABLE TO REPEAT BACK PLAN OF CARE. PT CONTINUES TO STATE HE IS HUNGRY, NPO EDUCAITON DONE WITH PT AGAIN, PT VERBALIZES UNDERSTANDING. IV SALINE LOCKED FOR TRANSPORT. PT DOES NOT HAVE CLOTHES WITH HIM AND WILL TRANSFER IN GOWN. BELONGINGS PACKED FOR PT. AWAITING TRANSPORT [facility]. BED RAILS UP. CALL LIGHT WIHTIN REACH. BED ALARM ON.
--- NOTE | 2021-01-14 17:51 | NUR ---
REPORT CALLED TO BETTINA AT [facility] IN [place]. AWAITING ARRIVAL OF ALEXSANDRA SUAREZ.
--- NOTE | 2021-01-14 18:50 | NUR ---
TRANSPORT [facility] ARRIVED. REPORT GIVEN TO EMILY PAINTING WHO STATES HIS QUESTIONS HAVE BEEN ANSWERED. PT TRANSPORTED TO [facility] WITH [address] P[address] ASS[address] BENITES ALSO SPOKE WITH EMILY PAINTING.
== END 2021-01-14 19:00 | DRG 177 ==
LOC: ED 21:18 → CCU 21:20 → MS 01-13 17:00
PROVIDERS: ADMIT Student in an Organized Health Care Education/Training Program; ATTEND Student in an Organized Health Care Education/Training Program
PROC: 8E0ZXY6 Isolation (ICD-10-PCS; principal; 2021-01-11)
DX: J69.0 Pneumonitis due to inhalation of food and vomit (principal); J96.01 Acute respiratory failure with hypoxia; U07.1 COVID-19; G92.8 Other toxic encephalopathy; N17.9 Acute kidney failure, unspecified; F11.20 Opioid dependence, uncomplicated; F03.90 Unspecified dementia, unspecified severity, without behavioral disturbance, psychotic disturbance, mood disturbance, and anxiety; F39 Unspecified mood [affective] disorder; G89.29 Other chronic pain; N40.0 Benign prostatic hyperplasia without lower urinary tract symptoms; Z79.899 Other long term (current) drug therapy
CPT/HCPCS: 31720; 51702; 70450; 71045; 80048; 80053; 80500; 81001; 83605; 83735; 84484; 85025; 87040; 92610; 93005; 93010; 94668; 94760; 96375; 96376; 97110; 97162; 97166; 97530; 99285-25; C9803; G0378; J0131; J0456; J0696; J1630; J1650; J2270; J2310; J3475; J3480; J7030; J7040; J7060; J7121; U0003

== ENCOUNTER 2021-03-03 08:28 | Emergency (ER) | payer MEDICARE ==
[~2021-03-03] VITALS: Ht 167.6 cm; Wt 67.1 kg
[~2021-03-03 08:28] MED LIST: ARICEPT10 MG PO; DISULFIRAM250 MG PO; DOCUSATE SODIU1 EACH PO; ENULOSE10 GM/15 M PO; FLOMAX0.4 MG PO; GABAPENTIN100 MG PO; GABAPENTIN300 MG PO; IMMUNICARE CAP1 EACH PO; METHADONE HCL10 MG PO; METHADONE10 MG/5 ML PO; MOBIC15 MG PO; MUCUS RELIEF400 MG PO; MULTI VITAMIN1 EACH PO; NARCAN4 MG NAS; RISPERIDONE0.25 MG PO; STOOL SOFTENER100 M1 PO; TRAZODONE HCL150 MG PO; TRAZODONE HCL50 MG PO; VITAMIN D350 MC3 PO
[2021-03-03] MEDS ORDERED: METHADONE HCL10 MG PO (10:04)
[2021-04-06] MEDS ORDERED: TRAZODONE HCL150 MG PO (13:24)
[2021-04-06] MEDS ORDERED: VISTARIL25 MG PO (13:24)
[2021-04-06] MEDS ORDERED: MORPHINE SULFAT45 MG PO (13:24)
[2021-04-06] MEDS ORDERED: QUETIAPINE FUMA25 MG PO (13:24)
[2021-04-06] MEDS ORDERED: DOK100 MG PO (13:24)
[2021-04-06] MEDS ORDERED: TRAZODONE HCL50 MG PO (13:24)
[2021-04-06] MEDS ORDERED: GABAPENTIN100 MG PO (13:24)
== END 2021-04-07 11:12 | disposition home or self-care (01) ==
LOC: ED 08:28
DX: F11.23 Opioid dependence with withdrawal (principal); Z79.899 Other long term (current) drug therapy
CPT/HCPCS: 80053; 81001; 84443; 85025; 97162; 97163; 99284; A9270; A9270-GY; U0003